=== PATIENT | female | born 1980 ===

== ENCOUNTER 2023-02-11 10:27 | Emergency (ER) | payer BC ==
[2023-02-11 11:02] LABS: #Eosinphils 0.2 10x3/uL (0.0-0.5); #Monocytes 0.9 10x3/uL (0.0-1.1); %Basophils 0.5 % (0.0-2.0); %Eosinophils 2.2 % (0.0-6.0); %Lymphocytes 28.6 % (18.0-47.0); %Monocytes 10.4 % (0.0-10.0); Hematocrit 23.6 % (34.9-44.5); Hemoglobin 6.5 g/dL (12.0-15.5); Mean Corpuscular HGB CONC 27.5 g/dL (32.0-36.0); Mean Corpuscular Hemoglobin 16.6 pg (27.0-33.0); Mean Corpuscular Volume 60.2 fl (81.6-98.3); Mean Platelet Volume 9.1 fl (7.4-10.4); Platelet Count 423 10x3/uL (150-450); Red Blood Cell (RBC) Count 3.92 10x6/uL (3.90-5.03); White Blood Cell (WBC) Count 8.7 10x3/uL (3.5-10.5)
[2023-02-11 11:31] LABS: Anisocytosis SLIGHT = 6-15 cells (100X) (0-5/hpf); Elliptocytes SLIGHT = 2-5 cells (100X) (0-1/hpf); Hypochromia SLIGHT = 6-15 cells (100X) (0-5/hpf); Microcytosis MODERATE=15-30 cells (100X) (0-5/hpf); Ovalocytes SLIGHT = 2-5 cells (100X) (0-1/hpf); Reflex for Review?? YES
[2023-02-11 11:34] LABS: Platelet Adequacy Comment Appears Adequate
[2023-02-11] MEDS ORDERED: Acetaminophen 500 MG TAB ONE (13:42)
[2023-02-11] MEDS ORDERED: Meclizine HCl 25 MG TAB ONE (14:18)
[2023-02-11] MEDS ORDERED: Metoclopramide HCl 10 MG/2 ML VIAL ONE (14:18)
== END 2023-02-11 15:30 | disposition home or self-care (01) ==
LOC: CSHERS 10:27
DX: D64.9 Anemia, unspecified (principal); R42 Dizziness and giddiness; R51.9 Headache, unspecified
CPT/HCPCS: 36415; 36430; 85025; 85060; 86850; 86900; 86901; 96365; J2765; P9016